=== PATIENT | male | born 1955 | race Caucasian/White ===

== ENCOUNTER 2019-12-20 14:06 | Inpatient (IN) | payer MEDICARE, MEDICAID ==
[~2019-12-20] VITALS: Ht 172.7 cm; Wt 103.0 kg
[2019-12-20] VITALS (8 sets, daily range): BP systolic 92–136; BP diastolic 44–82
[2019-12-20 14:34] LABS: URINE BILIRUBIN NEGATIVE (Negative); URINE BLOOD 3+ (Negative); URINE CLARITY CLOUDY; URINE COLOR BROWN; URINE GLUCOSE-RANDOM NEGATIVE (Negative); URINE KETONES NEGATIVE (Negative); URINE NITRITE-REFLEX NEGATIVE (Negative); URINE PROTEIN 2+ (Negative); URINE UROBILINOGEN 0.2 E.U./dl (0.2-1.0)
[2019-12-20 14:40] LABS: HEMATOCRIT 36.3 % (42.0-52.0); HEMOGLOBIN 12.1 gm/dL (14.0-18.0); MCH 26.3 pg (26.0-34.0); MCHC 33.4 g/dL (28.0-37.0); MCV 78.9 fL (80.0-100.0); MPV 6.8 fl. (7.2-11.1); NUCLEATED RBCS 0 /100WBC; PLATELET COUNT* 223 thou/uL (150-400); RDW-CV 15.5 % (10.5-14.5)
[2019-12-20 14:45] LABS: CALCIUM 8.7 mg/dL (8.5-10.1); CREATININE 1.9 mg/dL (0.6-1.3); POTASSIUM 4.3 mmol/L (3.5-5.1)
[2019-12-20 14:45] LABS: URINE LEUKOCYTES-REFLEX 2+ (Negative)
[2019-12-20 14:49] LABS: ALBUMIN 2.8 g/dL (3.4-5.0); TOTAL BILIRUBIN 0.9 mg/dL (<0.1-1.0); TOTAL PROTEIN 5.7 g/dL (6.4-8.2)
[2019-12-20 14:49] LABS: URINE RBC >20 Many /HPF (0-2)
[2019-12-20 14:50] LABS: HYALINE CASTS 0-3 Few /LPF (None Seen)
[2019-12-20 14:51] LABS: CRYSTALS None Seen /LPF (None Seen)
[2019-12-20 14:52] LABS: MUCUS None Seen strn/LPF (None Seen); SQUAMOUS 0-3 Few /LPF (0-3)
[2019-12-20 15:23] LABS: ABSOLUTE EOSINOPHILS 0.1 thou/uL (0.0-0.7); ABSOLUTE LYMPHOCYTES 0.1 thou/uL (0.8-5.3); ABSOLUTE NEUTROPHILS 5.8 thou/uL (1.6-8.1); ANISOCYTOSIS 1+; PLATELET ESTIMATE ADEQUATE
[2019-12-20 15:24] LABS: MICROCYTES 1+
--- NOTE | 2019-12-20 16:32 | EKG ---
[place] [address] ELECTROCARDIOGRAM REPORT Name: VERNELL HAMILTON Room: [facility]#: [id number] Admission: Attend Phys: Discharge: Date of : 59 Date of Service: 12/20/19 1415 Report #: [id number] THIS REPORT FOR: //name// [facility] ED Test Date: 2019-12-20 Test Time: 14:15:22 Pat Name: VERNELL HAMILTON Department: Room: Gender: M [facility] Counsel: [facility] : 1955 Requested By: Tony Leggett Order Number: [id number] MD: Duane Britton Measurements Intervals [place] Rate: 98 P: -28 PA: 110 QRS: 19 QRSD: 84 T: 82 QT: 306 QTc: 391 Interpretive Statements Sinus rhythm Borderline short PA interval Minimal ST elevation, anterior leads Baseline wander in lead(s) V1 No previous ECG available for comparison Electronically Signed On 12-20-2019 16:32:05 CDT by Duane Britton [email or web address] <ELECTRONICALLY SIGNED> By: Duane Britton MD, [facility] 12/20/19 1632 1415 1415 Duane Britton MD, FAC /EPI
[2019-12-20] MEDS ORDERED: CYPROHEPTADINE 44 MG PO (16:54)
[2019-12-20] MEDS ORDERED: FENOFIBRATE150 MG PO (16:55)
[2019-12-20] MEDS ORDERED: NEURONTIN300 MG PO (16:57)
[2019-12-20] MEDS ORDERED: FLUPHENAZINE 5 M5 M1 PO (16:57)
[2019-12-20] MEDS ORDERED: GLIPIZIDE ER10 MG PO (16:58)
[2019-12-20] MEDS ORDERED: KRISTALOSE20 GM PO (16:58)
[2019-12-20] MEDS ORDERED: LEVO-T100 MCG PO (16:59)
[2019-12-20] MEDS ORDERED: LEVEMIR100 UNIT/2 SUBQ (16:59)
[2019-12-20] MEDS ORDERED: LITHIUM CARBON150 MG PO (16:59)
[2019-12-20] MEDS ORDERED: LORAZEPAM 1 MG T1 MG PO (17:00)
[2019-12-20] MEDS ORDERED: METFORMIN HCL500 M3 PO (17:00)
[2019-12-20] MEDS ORDERED: REGLAN 10 MG TA10 MG PO (17:01)
[2019-12-20] MEDS ORDERED: LOPRESSOR50 MG PO (17:01)
[2019-12-20] MEDS ORDERED: NOVOLOG100 UNIT/M SUBQ (17:03)
[2019-12-20] MEDS ORDERED: OMEPRAZOLE20 M2 PO (17:04)
[2019-12-20 18:10] LABS: BE -4.7 mmol/L (-2 to +3); PCO2 VENOUS 51.5 mmHg (41.0-51.0)
[2019-12-20] MEDS ORDERED: PREDNISONE 20 M20 M1 PO (20:32)
[2019-12-20] MEDS ORDERED: PAXIL 20 MG TAB20 MG PO (20:32)
[2019-12-20] MEDS ORDERED: FLOMAX0.4 MG PO (20:34)
[2019-12-20] MEDS ORDERED: TRAMADOL 50 MG50 MG PO (20:34)
[2019-12-20] MEDS ORDERED: RISPERDAL37.5 MG/2 IM (20:34)
[2019-12-20] MEDS ORDERED: DESYREL150 MG PO (20:35)
[2019-12-21] VITALS (37 sets, daily range): BP systolic 75–181; BP diastolic 23–99
[2019-12-21 04:06] LABS: HEMOGLOBIN 10.6 gm/dL (14.0-18.0); MCH 26.2 pg (26.0-34.0); MCHC 33.3 g/dL (28.0-37.0); MCV 78.8 fL (80.0-100.0); MPV 6.9 fl. (7.2-11.1); RBC 4.06 mil/uL (4.50-6.00); RDW-CV 15.4 % (10.5-14.5)
[2019-12-21 04:26] LABS: CALCIUM 8.2 mg/dL (8.5-10.1); MAGNESIUM 1.2 mg/dL (1.8-2.4)
[2019-12-21 04:27] LABS: WBC 29.9 thou/uL (4.0-11.0)
[2019-12-22] VITALS (14 sets, daily range): BP systolic 115–161; BP diastolic 57–96
[2019-12-22 05:48] LABS: HEMATOCRIT 31.7 % (42.0-52.0); HEMOGLOBIN 10.6 gm/dL (14.0-18.0); MCH 26.6 pg (26.0-34.0); MCHC 33.4 g/dL (28.0-37.0); MCV 79.5 fL (80.0-100.0); MPV 7.1 fl. (7.2-11.1); RBC 3.98 mil/uL (4.50-6.00); RDW-CV 15.7 % (10.5-14.5); WBC 15.6 thou/uL (4.0-11.0)
[2019-12-22 06:14] LABS: CREATININE 1.4 mg/dL (0.6-1.3); MAGNESIUM 2.1 mg/dL (1.8-2.4); POTASSIUM 4.2 mmol/L (3.5-5.1)
--- NOTE | 2019-12-22 12:43 | 2DMMODE ---
[facility] [address] [place] [address] 2 D/M-MODE ECHOCARDIOGRAM Name: VERNELL HAMILTON [place] [facility] [id number] Admission: 12/20/19 Attend Phys: Adelfo Finley, Discharge: Date of : 59 Date of Service: 12/22/19 1242 Report #: [id number] THIS REPORT FOR: cc: FAM - Family physician unknown FAM - Family physician unknown Adán Albrecht MD [facility] ~ APPROVED REPORT Study performed: 12/22/2019 10:11:59 EXAM: Limited 2D Echocardiogram Patient Location: In-Patient Room #: 003 Status: routine BSA: 2.13 HR: 81 bpm BP: 134/87 mmHg Rhythm: NSR Other Information Study Quality: Good Indications Sepsis evaluate for valve vegetations Left Ventricle The left ventricle is normal size. There is normal LV segmental wall motion. There is normal left ventricular wall thickness. The left ventricular systolic function is normal. LVEF is 55-60%. Right Ventricle The right ventricle is normal size. The right ventricular systolic function is normal. Atria The left atrium size is normal. The right atrium size is normal. Aortic Valve The aortic valve is normal in structure. Mitral Valve The mitral valve is normal in structure. [address] [address] 2 D/M-MODE ECHOCARDIOGRAM Name: SHERIEHUBERTVERNELL Coral Room: [address] ADM IN M.R.#: [id number] Admission: 12/20/19 Attend Phys: Adelfo Finley, Discharge: Date of : 59 Date of Service: 12/22/19 1242 Report #: [id number] Tricuspid Valve The tricuspid valve is normal in structure. Pulmonic Valve Pulmonic valve is not well visualized. Great Vessels The aortic root is normal in size. IVC is normal in size and collapses >50% with inspiration. Pericardium There is no pericardial effusion. <Conclusion> The left ventricle is normal size. There is normal left ventricular wall thickness. The left ventricular systolic function is normal. LVEF is 55-60%. IVC is normal in size and collapses >50% with inspiration. <ELECTRONICALLY SIGNED> By: Adán Albrecht MD, FACC 12/22/19 1242 [id number] Adán Albrecht MD, FACC /INF
[2019-12-23 00:52] VITALS: BP 109/59
[2019-12-23 04:40] VITALS: BP 130/57
[2019-12-23 05:49] LABS: CALCIUM 8.4 mg/dL (8.5-10.1); CREATININE 1.5 mg/dL (0.6-1.3); MAGNESIUM 1.6 mg/dL (1.8-2.4); POTASSIUM 4.3 mmol/L (3.5-5.1)
[2019-12-23 08:00] VITALS: BP 136/70
[2019-12-23 12:03] VITALS: BP 117/75
[2019-12-23 15:56] VITALS: BP 121/75
[2019-12-23 20:15] VITALS: BP 146/77
[2019-12-24 00:49] VITALS: BP 158/91
[2019-12-24 04:28] LABS: HEMATOCRIT 30.2 % (42.0-52.0); HEMOGLOBIN 10.2 gm/dL (14.0-18.0); MCHC 33.8 g/dL (28.0-37.0); MCV 79.8 fL (80.0-100.0); MPV 6.8 fl. (7.2-11.1); RBC 3.78 mil/uL (4.50-6.00); RDW-CV 15.4 % (10.5-14.5); WBC 10.6 thou/uL (4.0-11.0)
[2019-12-24 04:32] VITALS: BP 157/81
[2019-12-24 04:37] LABS: CALCIUM 8.3 mg/dL (8.5-10.1); CREATININE 1.6 mg/dL (0.6-1.3); MAGNESIUM 1.4 mg/dL (1.8-2.4); POTASSIUM 4.4 mmol/L (3.5-5.1)
[2019-12-24 08:00] VITALS: BP 148/79
[2019-12-24 11:58] VITALS: BP 139/83
[2019-12-24 15:45] VITALS: BP 173/85
[2019-12-24 20:30] VITALS: BP 142/80
[2019-12-25] VITALS: BP 140/76
[2019-12-25 04:00] VITALS: BP 120/68
[2019-12-25 04:43] LABS: HEMATOCRIT 30.7 % (42.0-52.0); HEMOGLOBIN 10.2 gm/dL (14.0-18.0); MCH 26.4 pg (26.0-34.0); MCHC 33.3 g/dL (28.0-37.0); MCV 79.4 fL (80.0-100.0); MPV 6.7 fl. (7.2-11.1); RBC 3.87 mil/uL (4.50-6.00); RDW-CV 15.1 % (10.5-14.5)
[2019-12-25 05:36] LABS: ALBUMIN 2.6 g/dL (3.4-5.0); CALCIUM 8.5 mg/dL (8.5-10.1); CREATININE 1.5 mg/dL (0.6-1.3); MAGNESIUM 1.5 mg/dL (1.8-2.4); TOTAL BILIRUBIN 0.3 mg/dL (<0.1-1.0); TOTAL PROTEIN 5.6 g/dL (6.4-8.2)
[2019-12-25 08:00] VITALS: BP 123/75
[2019-12-25 13:18] VITALS: BP 132/74
[2019-12-25 16:00] VITALS: BP 136/81
[2019-12-25 20:00] VITALS: BP 119/68
[2019-12-26 04:00] VITALS: BP 156/72
[2019-12-26 04:16] LABS: HEMATOCRIT 30.6 % (42.0-52.0); HEMOGLOBIN 10.3 gm/dL (14.0-18.0); MCH 26.7 pg (26.0-34.0); MCHC 33.5 g/dL (28.0-37.0); MCV 79.4 fL (80.0-100.0); MPV 6.7 fl. (7.2-11.1); RBC 3.85 mil/uL (4.50-6.00); RDW-CV 14.9 % (10.5-14.5); WBC 11.8 thou/uL (4.0-11.0)
[2019-12-26 04:32] LABS: CALCIUM 8.4 mg/dL (8.5-10.1); CREATININE 1.6 mg/dL (0.6-1.3); MAGNESIUM 1.4 mg/dL (1.8-2.4); POTASSIUM 4.1 mmol/L (3.5-5.1)
[2019-12-26 07:30] VITALS: BP 155/81
[2019-12-26 13:01] VITALS: BP 141/58
[2019-12-26 16:45] VITALS: BP 144/60
[2019-12-26 20:10] VITALS: BP 155/73
[2019-12-26 23:50] VITALS: BP 149/68
[2019-12-27 08:00] VITALS: BP 121/58
[2019-12-27 15:30] VITALS: BP 129/57
[2019-12-27 19:30] VITALS: BP 142/64
[2019-12-28 04:55] LABS: HEMATOCRIT 29.7 % (42.0-52.0); HEMOGLOBIN 9.8 gm/dL (14.0-18.0); MCH 26.1 pg (26.0-34.0); MCV 79.2 fL (80.0-100.0); MPV 6.9 fl. (7.2-11.1); RBC 3.75 mil/uL (4.50-6.00); WBC 7.8 thou/uL (4.0-11.0)
[2019-12-28 05:47] LABS: ALBUMIN 2.5 g/dL (3.4-5.0); CALCIUM 8.2 mg/dL (8.5-10.1); CREATININE 1.4 mg/dL (0.6-1.3); MAGNESIUM 1.6 mg/dL (1.8-2.4); POTASSIUM 3.9 mmol/L (3.5-5.1); TOTAL BILIRUBIN 0.4 mg/dL (<0.1-1.0); TOTAL PROTEIN 5.6 g/dL (6.4-8.2)
[2019-12-28 08:19] VITALS: BP 90/60
[2019-12-28 15:37] VITALS: BP 142/56
[2019-12-28 19:56] VITALS: BP 147/72
[2019-12-29 05:15] VITALS: BP 126/73
[2019-12-29 08:20] VITALS: BP 140/76
[2019-12-29] MEDS ORDERED: LEVOFLOXACIN500 MG PO (11:18)
[2019-12-29] MEDS ORDERED: MINOCYCLINE HC100 M2 PO (11:22)
[2019-12-29] MEDS ORDERED: TRAMADOL 50 MG50 MG PO (11:22)
[2019-12-29] MEDS ORDERED: LORAZEPAM 1 MG T1 MG PO (11:22)
[2019-12-29] MEDS ORDERED: GLUCOTROL5 MG PO (11:22)
[2019-12-29 14:22] VITALS: BP 140/76
== END 2019-12-29 15:40 | DRG 871 ==
LOC: M.ERS 14:06 → M.ICU 15:39 → M.2W 15:39 → M.TBA-ER 15:39 → M.ICU 19:17 → M.2W 12-22 20:01 → M.ORTHSURG 12-26 23:11
PROVIDERS: Family Medicine; Internal Medicine; ADMIT Internal Medicine; ATTEND Internal Medicine
PROC: 02HV33Z Insertion of Infusion Device into Superior Vena Cava, Percutaneous Approach (ICD-10-PCS; principal; 2019-12-20)
DX: A41.02 Sepsis due to Methicillin resistant Staphylococcus aureus (principal); R65.21 Severe sepsis with septic shock; N17.0 Acute kidney failure with tubular necrosis; G92 Toxic encephalopathy; T83.518A Infection and inflammatory reaction due to other urinary catheter, initial encounter; F20.0 Paranoid schizophrenia; J44.9 Chronic obstructive pulmonary disease, unspecified; E11.22 Type 2 diabetes mellitus with diabetic chronic kidney disease; N18.9 Chronic kidney disease, unspecified; I12.9 Hypertensive chronic kidney disease with stage 1 through stage 4 chronic kidney disease, or unspecified chronic kidney disease; E11.51 Type 2 diabetes mellitus with diabetic peripheral angiopathy without gangrene; B96.89 Other specified bacterial agents as the cause of diseases classified elsewhere; D36.7 Benign neoplasm of other specified sites; K11.20 Sialoadenitis, unspecified; Z20.828 Contact with and (suspected) exposure to other viral communicable diseases; N30.91 Cystitis, unspecified with hematuria; Y84.8 Other medical procedures as the cause of abnormal reaction of the patient, or of later complication, without mention of misadventure at the time of the procedure; F31.9 Bipolar disorder, unspecified; Z88.1 Allergy status to other antibiotic agents; Z88.2 Allergy status to sulfonamides; Z79.899 Other long term (current) drug therapy; Z79.84 Long term (current) use of oral hypoglycemic drugs; Z79.4 Long term (current) use of insulin; Y92.89 Other specified places as the place of occurrence of the external cause